=== PATIENT | male | born 1960 | race Two or more races ===

== ENCOUNTER 2024-02-05 10:20 | Inpatient (IN) | payer MEDICARE, OTHER ==
[~2024-02-05] VITALS: Ht 165.1 cm; Wt 82.3 kg
[2024-02-05 10:38] LABS: Basophils # (auto) 0.1 10 ^3/uL (0-0.2); Basophils % (auto) 1.1 % (0.0-2.0); Eosinophils # (auto) 0.1 10 ^3/uL (0-0.8); Eosinophils % (auto) 2.1 % (0.0-7.0); Hematocrit 42.9 % (41.0-53.0); Hemoglobin 14.2 g/dL (13.5-17.5); Lymphocytes # (auto) 1.2 10 ^3/uL (0.4-5.4); Lymphocytes % (auto) 23.7 % (10.0-50.0); Mean Corpuscular Hemoglobin 31.1 pg (28.0-32.0); Mean Corpuscular Hgb Conc. 33.2 g/dL (32.0-36.0); Mean Corpuscular Volume 93.7 fL (80.0-100.0); Monocytes # (auto) 0.4 10 ^3/uL (0-1.3); Monocytes % (auto) 7.5 % (0.0-12.0); Neutrophils # (auto) 3.4 10 ^3/uL (1.6-8.6); Neutrophils % (auto) 65.6 % (37.0-80.0); Nucleated Red Blood Cells % 0.1 %; Red Blood Cells 4.58 10^6/uL (4.5-5.90); Red Cell Distribution Width 14.5 % (11.8-14.3); White Blood Cell 5.1 10^3/uL (4.4-10.8)
[2024-02-05] MEDS: SODIUM CHLORIDE 0.9% 1,000 ML IV ONE (10:52)
[2024-02-05] MEDS: NITROGLYCERIN 0.4 MG SL TAB SL ONE (10:53)
[2024-02-05 10:55] LABS: Alanine Aminotransferase 20 U/L (7-40); Albumin 3.8 g/dL (3.2-4.8); Alkaline Phosphatase 87 U/L (46-116); Anion Gap 3 (5-15); Aspartate Aminotransferase 22 U/L (13-40); BUN/Creatinine Ratio 11.4 (10.0-20.0); Blood Urea Nitrogen 13 mg/dL (9-23); Carbon Dioxide 30 mmol/L (20-30); Chloride 106 mmol/L (98-107); Glucose 108 mg/dL (74-106); Lipase 33 U/L (12-53); Sodium 139 mmol/L (136-145)
[2024-02-05 10:56] LABS: Bilirubin, Total 0.5 mg/dL (0.2-1.0); Total Protein 6.8 g/dL (5.7-8.2)
[2024-02-05 13:01] LABS: Urine WBC None Seen /hpf (0 - 3)
[2024-02-05 13:09] LABS: Urine Bacteria NONE SEEN /hpf (None Seen); Urine Blood Negative /uL (Negative); Urine Clarity Clear (Clear); Urine Protein, UAD TRACE (Negative); Urine Specific Gravity 1.016 (1.001-1.035); Urine Urobilinogen Normal (Negative); Urine pH 6.5 (5.0-9.0)
[2024-02-05 13:10] LABS: Urine Color Straw (Yellow)
[2024-02-05] MEDS ORDERED: ENOXAPARIN SOD 40 MG/0.4 ML SYRINGE SC SCH (13:45)
[2024-02-05] MEDS ORDERED: ONDANSETRON HCL 4 MG/2 ML VIAL IV PRN ×2 (13:45)
[2024-02-05] MEDS ORDERED: ACETAMINOPHEN 325 MG TAB PO PRN (13:45)
[2024-02-05] MEDS ORDERED: DOCUSATE SOD 100 MG CAP PO PRN (13:45)
[2024-02-05] MEDS ORDERED: MORPHINE SULFATE 4 MG/ML SYR/VIAL IV PRN (13:45)
[2024-02-05] MEDS ORDERED: NITROGLYCERIN 0.4 MG SL TAB SL PRN (13:45)
[2024-02-05] MEDS: ONDANSETRON HCL 4 MG/2 ML VIAL IV ONE (13:46)
[2024-02-05 14:22] LABS: INR 0.98 (0.9-1.15); Prothrombin Time 10.3 sec (9.3-11.8)
[2024-02-05 16:49] LABS: Triglycerides 235 mg/dL (< 150)
[2024-02-05 16:50] LABS: LDL Cholesterol 170 mg/dL (< 100)
[2024-02-05 16:51] LABS: HDL Cholesterol 51 mg/dL (40-59)
[2024-02-05 16:52] LABS: Cholesterol 257 mg/dL (< 200)
[2024-02-05] MEDS: SODIUM CHLORIDE 0.9% 1,000 ML IV SCH (18:58)
[2024-02-05] MEDS: IOHEXOL 350 MG/ML 100ML IJ ONE (19:01)
[2024-02-05] MEDS: ENOXAPARIN SOD 100 MG/1 ML SYRINGE SC SCH (20:01)
[2024-02-05] MEDS: cefTRIAXone 1GM/50ML D5W 50 ML IV ONE (20:01)
[2024-02-05] MEDS: TAMSULOSIN HYDROCHLORIDE 0.4 MG CAP PO SCH (20:01)
[2024-02-05 21:31] VITALS: PULSE 78; RESP 15; O2SAT 96
[2024-02-05] MEDS: ATORVASTATIN 20 MG TAB PO SCH (21:56)
[2024-02-05] MEDS: KETOROLAC TROMETH 30 MG/ML 1ML VIAL IV PRN (23:45)
[2024-02-06] VITALS (10 sets, daily range): BP systolic 121–157; BP diastolic 77–86; PULSE 73–90; RESP 16–20; TEMP 97–98.9; O2SAT 94–99
[2024-02-06 05:49] LABS: Basophils # (auto) 0 10 ^3/uL (0-0.2); Basophils % (auto) 0.6 % (0.0-2.0); Eosinophils # (auto) 0.2 10 ^3/uL (0-0.8); Eosinophils % (auto) 3.1 % (0.0-7.0); Hematocrit 38.6 % (41.0-53.0); Hemoglobin 13.1 g/dL (13.5-17.5); Lymphocytes # (auto) 1.3 10 ^3/uL (0.4-5.4); Mean Corpuscular Hemoglobin 31.9 pg (28.0-32.0); Mean Corpuscular Hgb Conc. 33.8 g/dL (32.0-36.0); Mean Corpuscular Volume 94.3 fL (80.0-100.0); Monocytes # (auto) 0.5 10 ^3/uL (0-1.3); Neutrophils # (auto) 3.1 10 ^3/uL (1.6-8.6); Neutrophils % (auto) 60.3 % (37.0-80.0); Red Blood Cells 4.09 10^6/uL (4.5-5.90); Red Cell Distribution Width 14.3 % (11.8-14.3); White Blood Cell 5.2 10^3/uL (4.4-10.8)
[2024-02-06 06:08] LABS: Alanine Aminotransferase 17 U/L (7-40); Albumin 3.4 g/dL (3.2-4.8); Alkaline Phosphatase 78 U/L (46-116); Anion Gap 3 (5-15); BUN/Creatinine Ratio 10.4 (10.0-20.0); Blood Urea Nitrogen 14 mg/dL (9-23); Calcium 7.8 mg/dL (8.5-10.1); Carbon Dioxide 30 mmol/L (20-30); Chloride 107 mmol/L (98-107); Glucose 113 mg/dL (74-106); LDL Cholesterol 146 mg/dL (< 100); Potassium 4.2 mmol/L (3.5-5.1); Sodium 140 mmol/L (136-145); Triglycerides 278 mg/dL (< 150)
[2024-02-06 06:09] LABS: Aspartate Aminotransferase 24 U/L (13-40); Bilirubin, Total 0.5 mg/dL (0.2-1.0); Cholesterol 219 mg/dL (< 200); HDL Cholesterol 38 mg/dL (40-59); Total Protein 6.3 g/dL (5.7-8.2)
[2024-02-06] MEDS: cefTRIAXone 1GM/50ML D5W 50 ML IV SCH (08:06)
[2024-02-06] MEDS: ADENOSINE 67 MG in GIVE UN-DILUTED 0 ML IV ONE (10:24)
[2024-02-06] MEDS: ASPirin 81 mg TAB PO SCH (11:18)
[2024-02-06] MEDS ORDERED: LORazepam 2MG/ML-1ML VIAL IV ONE (13:45)
[2024-02-06] MEDS ORDERED: MECLIZINE HCL 25 MG TAB PO PRN (13:45)
[2024-02-06] MEDS: LACTULOSE 20Gm/30ML SOLN PO ONE (14:56)
[2024-02-06] MEDS: PANTOPRAZOLE 40 MG/10 ML VIAL INJ IV ONE (16:32)
[2024-02-06] MEDS: LACTULOSE 20Gm/30ML SOLN PO SCH (18:09)
[2024-02-07 01:00] VITALS: BP 149/85; PULSE 20; RESP 20; TEMP 98.1; O2SAT 94
[2024-02-07 05:00] VITALS: BP 121/70; PULSE 72; RESP 20; TEMP 96.6; O2SAT 90
[2024-02-07 08:00] VITALS: PULSE 69; RESP 18
[2024-02-07 08:05] VITALS: BP 139/87; PULSE 84; RESP 20; TEMP 97.5; O2SAT 93
[2024-02-07] MEDS: PANTOPRAZOLE 40 MG/10 ML VIAL INJ IV SCH (08:52)
[2024-02-07] MEDS ORDERED: TAMS-35 PO (11:50)
[2024-02-07] MEDS ORDERED: ATOR20TA50 PO (11:50)
[2024-02-07 12:05] VITALS: BP 133/81; PULSE 71; RESP 20; TEMP 98.2; O2SAT 94
[2024-02-07 14:35] VITALS: BP 133/81; PULSE 71; RESP 20; TEMP 98.2; O2SAT 94
== END 2024-02-07 15:45 | disposition home or self-care (01) | DRG 690 ==
LOC: ER 10:20 → EDBD 10:20 → TELE 15:32 → TELE-WESTW 23:09
PROVIDERS: ADMIT Nurse Practitioner Family; ATTEND Internal Medicine
DX: N30.00 Acute cystitis without hematuria (principal); N20.2 Calculus of kidney with calculus of ureter; E66.9 Obesity, unspecified; K57.30 Diverticulosis of large intestine without perforation or abscess without bleeding; E78.5 Hyperlipidemia, unspecified; R07.89 Other chest pain; Z79.899 Other long term (current) drug therapy; Z68.30 Body mass index [BMI] 30.0-30.9, adult
CPT/HCPCS: 36415; 70450; 70551; 71045; 71275; 74176; 78452; 80053; 80061; 81001; 83036; 83690; 83735; 83880; 84443; 84484; 85025; 85379; 85610; 93005; 93017; 93306; 93970; 96361; 96374; C9113; G0378; J0153; J1885; J2405